=== PATIENT | female | born 1955 | race Caucasian/White ===

== ENCOUNTER 2025-09-29 01:06 | Emergency (ER) | payer BC, OTHER ==
[~2025-09-29] VITALS: Ht 152.4 cm; Wt 70.0 kg
[2025-09-29 01:10] VITALS: O2SAT 100
[2025-09-29 02:12] LABS: CREATININE 0.9 mg/dL (0.6-1.0); UREA NITROGEN BLOOD 8 mg/dL (9-23)
[2025-09-29 02:13] LABS: TROPONIN I HIGH SENSITIVITY < 4 ng/L (3.0-34)
[2025-09-29 02:14] LABS: ASPARTATE AMINOTRANSFERASE 24 IU/L (<34); BILIRUBIN DIRECT 0.3 mg/dL (<=3.0); BILIRUBIN TOTAL 1.0 mg/dL (0.1-1.0); PROTEIN TOTAL 7.8 g/dL (6.0-8.3)
[2025-09-29 02:22] LABS: HEMATOCRIT. 42.2 % (36.0-48.0); HEMOGLOBIN. 13.8 g/dL (12.0-16.0); MEAN PLATELET VOLUME 8.5 fl (7.4-10.4); PLATELET 492 x1000/uL (130-400); RED BLOOD CELL COUNT 5.15 mill/uL (4.2-5.4); RED CELL DISTRIBUTION WIDTH 15.2 % (11.6-14.6)
[2025-09-29] MEDS: SODIUM CHLORIDE 0.9% 1,000 ML IV ONE ×2 (02:22→04:17)
[2025-09-29] MEDS: LOPERAMIDE HCL 2MG CAPSULE PO ONE (02:22)
[2025-09-29] MEDS: FAMOTIDINE 20MG/2ML VIAL IV ONE (02:23)
[2025-09-29] MEDS: MORPHINE SULFATE 4 MG/ML INJ (FOR IV/IM USE) IV ONE (02:23)
[2025-09-29] MEDS: METOCLOPRAMIDE HCL 10MG/2ML VIAL IV ONE (02:23)
[2025-09-29] MEDS ORDERED: ONDA-239 PO (03:20)
[2025-09-29] MEDS ORDERED: AZIT250T12 MT (03:20)
[2025-09-29] MEDS: AZITHROMYCIN 500 MG TABLET PO ONE (03:35)
[2025-09-29 05:27] VITALS: BP 129/63; PULSE 98; RESP 15; TEMP 37.1; O2SAT 95
[2025-09-29 08:10] LABS: BAND% 28.0 % (1.0-6.0); LYMPHOCYTES % MANUAL 9.0 % (20.0-60.0); MONOCYTES % MANUAL 2.0 % (2.0-8.0); NEUTROPHILS % MANUAL 61.0 % (45.0-75.0); PLATELET ESTIMATE INCREASED
== END 2025-09-29 05:29 | disposition home or self-care (01) ==
LOC: ER 01:24 → CMPBEDREQ 09-30 10:50
DX: K52.9 Noninfective gastroenteritis and colitis, unspecified (principal); E11.9 Type 2 diabetes mellitus without complications
CPT/HCPCS: 99285; 74176; 96374; 96361; 96375; 80076; 80048; 83690; 85025; 84484; 36415; 93005; J1308; J2765; J2270; J7030